=== PATIENT | male | born 1955 | race Caucasian/White ===

== ENCOUNTER 2018-01-08 06:38 | Day surgery (SDC) | payer OTHER ==
[2018-01-08] MEDS ORDERED: LIDOCAINE 1% 2 ML INJ ID PRN (06:53)
[2018-01-08] MEDS ORDERED: LR 1,000 ML IV ONE (06:53)
[2018-01-08] MEDS ORDERED: ceFAZolin 2 GM/DEXTROSE 100 ML IV ONE (07:40)
[2018-01-08 07:42] LABS: INR 1.16 (0.83-1.16)
--- NOTE | 2018-01-08 07:45 | PDANEPAE ---
ANE History of Present Illness 62 year old male w/ PMHx of Jaron (chronic), HTN, GERD & Obesity presents for robot assisted/laparoscopic inguinal hernia repair. ANE Past Medical History - Cardiovascular History Hx Hypertension: Yes Hx Arrhythmias: Yes Hx Chest Pain: No Hx Coronary Artery / Peripheral Vascular Disease: No Hx CHF / Valvular Disease: No Hx Palpitations: Yes Cardiovascular History Comment: CHRONIC AFIB AND CARDIOVERSION - Pulmonary History Hx COPD: No Hx Asthma/Reactive Airway Disease: No Hx Recent Upper Respiratory Infection: No Hx Oxygen in Use at Home: No Hx Sleep Apnea: Yes Sleep Apnea Screening Result - Last Documented: Positive - Neurologic History Hx Cerebrovascular Accident: No Hx Seizures: No Hx Dementia: No - Endocrine History Hx Diabetes: No Obesity: yes - Renal History Hx Renal Disorders: No - Liver History Hx Hepatic Disorders: No - Neurological & Psychiatric Hx Hx Neurological and Psychiatric Disorders: No - Cancer History Hx Cancer: No - Congenital Disorder History Hx Congenital Disorders: No - GI History Hx Gastrointestinal Disorders: Yes Gastrointestinal History Comment: GERD - Other Health History Other Health History: NA - Chronic Pain History Chronic Pain: No - Surgical History Prior Surgeries: CARDIOVERSION 2011 ANE Review of Systems Review of systems is: negative Review of Systems: - Exercise capacity Exercise capacity: >=4 METS METS (RN): 4 METS ANE Patient History - Allergies Allergies/Adverse Reactions: atenolol Allergy (Verified 01/07/18 12:11) - Home Medications Home medications: home medication list seen and reviewed Home Medications: Acetaminophen [Tylenol Extra Strength] 500 mg PO BID 07/29/12 [Last Taken ] Aspirin [Aspirin 81mg (OTC)] 07/29/12 [Last Taken 01/06/18] Lisinopril 40 mg PO 07/29/12 [Last Taken 01/07/18] Ranitidine HCl [Zantac 75] 150 mg PO 07/29/12 [Last Taken 01/07/18] Simvastatin 80 mg PO 07/29/12 [Last Taken 01/07/18] Spironolactone [Aldactone] 25 mg PO 07/29/12 [Last Taken 01/07/18] Warfarin Sodium [Coumadin 5MG (RX)] 5 mg PO DAILY16 07/29/12 [Last Taken ] - NPO status NPO Status: no food or drink >8 hours NPO Since - Liquids (Date): 01/07/18 NPO Since - Liquids (Time): 19:00 NPO Since - Solids (Date): 01/07/18 NPO Since - Solids (Time): 20:00 - Anes Hx Anes Hx: no prior problems - Smoking Hx Smoking Status: Never smoked Marijuana use: No - Alcohol Use Alcohol Use: Rarely - Family Anes Hx Family Anes Hx: neg - N/A Family Hx Anesthesia Complications: NA ANE Labs/Vital Signs - Labs Result Diagrams: 01/08/18 07:22 - Vital Signs Vital Signs: reviewed preoperatively; see RN documention for details Blood Pressure: 128/95 Heart Rate: 46 Respiratory Rate: 12 O2 Sat (%): 95 Height: 185.42 cm Weight: 122.47 kg ANE Physical Exam - Airway Neck exam: decreased ROM Mallampati Score: Class 4 Mouth exam: normal dental/mouth exam - Pulmonary Pulmonary: no respiratory distress - Cardiovascular Cardiovascular: irregularly irregular - ASA Status ASA Status: III ANE Anesthesia Plan Anesthesia Plan: general endotracheal anesthesia Total IV Anesthesia: No
--- NOTE | 2018-01-08 07:48 | PDGENHP ---
History and Physical - Chief Complaint hernia - History of Present Illness painful hernia, wants repair. Has had it a long time History Information - Allergies/Home Medication List Allergies/Adverse Reactions: atenolol Allergy (Verified 01/07/18 12:11) Home Medications: Acetaminophen [Tylenol Extra Strength] 500 mg PO BID 07/29/12 [Last Taken ] Aspirin [Aspirin 81mg (OTC)] 07/29/12 [Last Taken 01/06/18] Lisinopril 40 mg PO 07/29/12 [Last Taken 01/07/18] Ranitidine HCl [Zantac 75] 150 mg PO 07/29/12 [Last Taken 01/07/18] Simvastatin 80 mg PO 07/29/12 [Last Taken 01/07/18] Spironolactone [Aldactone] 25 mg PO 07/29/12 [Last Taken 01/07/18] Warfarin Sodium [Coumadin 5MG (RX)] 5 mg PO DAILY16 07/29/12 [Last Taken ] I have personally reviewed and updated: family history, medical history, social history, surgical history - Social History Smoking Status: Never smoked Alcohol Use: Rarely Review of Systems Review of Systems: ROS: 10pt was reviewed & negative except for what was stated in HPI & below Physical Exam Physical Exam: Temp Pulse Resp BP Pulse Ox 36.6 C 46 L 12 128/95 H 95 01/08/18 07:28 01/08/18 07:45 01/08/18 07:45 01/08/18 07:45 01/08/18 07:45 Constitutional: no apparent distress, appears nourished, not in pain Eyes: PERRL, anicteric sclera, EOMI Ears, Nose, Mouth, Throat: moist mucous membranes, hearing normal, ears appear normal, no oral mucosal ulcers Cardiovascular: regular rate and rhythym, no murmur, rub, or gallop, No edema Respiratory: no respiratory distress, no rales or rhonchi, clear to auscultation Gastrointestinal: normoactive bowel sounds, soft, non-tender abdomen, no palpable masses Genitourinary: no bladder fullness, no bladder tenderness Skin: warm, normal color, no rashes or abrasions, no fluctuance, no induration, No mottled Musculoskeletal: full muscle strength, no muscle tenderness, normal joint ROM, no joint effusions Psychiatric: interacting appropriately, not anxious, not encephalopathic, thought process linear Lymph, Heme, Immunologic: no cervical LAD, no supraclavicular LAD Lab Data & Imaging Review 01/08/18 07:22 PT 15.0 SEC (12.0-15.0) 01/08/18 07:22 INR 1.16 (0.83-1.16) 01/08/18 07:22 Assessment & Plan Plan: 62yo M c hernia, see full office note from 12/06 - to OR for repair
[2018-01-08] MEDS ORDERED: MIDAZOLAM 2 MG/2 ML VIAL IVP ONE (07:53)
[2018-01-08] MEDS ORDERED: BUPIVACAINE/EPI 0.5% 30 ML SDV ONE (07:55)
[2018-01-08] MEDS ORDERED: PROPOFOL/EMULSION 500 MG/50 ML BOTTLE IV ONE ×2 (08:01→09:04)
[2018-01-08] MEDS ORDERED: fentaNYL 100 MCG/2 ML INJ ONE ×2 (08:01→10:39)
[2018-01-08] MEDS ORDERED: ROCURONIUM 100 MG/10 ML VIAL ONE (08:02)
[2018-01-08] MEDS ORDERED: LIDOCAINE 2% 5 ML SDV ONE (08:02)
[2018-01-08] MEDS ORDERED: ceFAZolin 1 GM VIAL ONE (08:28)
[2018-01-08] MEDS ORDERED: DEXAMETHASONE 4 MG/ML VIAL ONE (08:31)
[2018-01-08] MEDS ORDERED: KETOROLAC 30 MG/1 ML SDV ONE (09:01)
[2018-01-08] MEDS ORDERED: PHENYLEPHRINE HCL 100 MCG/ML SYR IVP PRN (09:07)
[2018-01-08] MEDS ORDERED: LR 500 ML IV PRN (09:07)
[2018-01-08] MEDS ORDERED: ACETAMINOPHEN 500 MG TAB PO PRN (09:07)
[2018-01-08] MEDS ORDERED: NALOXONE HCL 0.4 MG/ML INJ IVP PRN (09:07)
[2018-01-08] MEDS ORDERED: ONDANSETRON 4 MG/2 ML VIAL IVP PRN (09:07)
[2018-01-08] MEDS ORDERED: oxyCODONE IR 5 MG TAB PO PRN (09:07)
[2018-01-08] MEDS ORDERED: ROCURONIUM 50 MG/5 ML VIAL ONE (09:22)
--- NOTE | 2018-01-08 10:13 | POSTOPPROG ---
Post Op Note Date of Operation: 01/08/18 Surgeon: Juan Prado Word Processor: JOHANNE Trinh Anesthesiologist: Prateek Anesthesia: GET(General Endotracheal) Pre-op Diagnosis: right inguinal hernia Post-op Diagnosis: right pantalloon inguinal hernia Procedure: robot assisted RIGHT inguinal hernia repair with mesh Findings: large direct, small indirect Inf/Abcess present in the surg proc area at time of surgery?: No EBL: Minimal
[2018-01-08] MEDS: fentaNYL 100 MCG/2 ML INJ IVP PRN ×2 (10:44→10:50)
[2018-01-08] MEDS ORDERED: ACETAMINOPHEN 500 MG TAB ONE (11:00)
--- NOTE | 2018-01-08 13:28 | POSTANESTH ---
Post Anesthetic Evaluation Cardiovascular Status: Normal, Stable, Similar to Pre-Op Cond Respiratory Status: Similar to Pre-op Cond. Level of Consciousness/Mental Status: Can Participate in Eval, Alert and Oriented Pain Control: Adequate, Prn Tx Ordered Nausea/Vomiting Control: Adequate, Prn Tx Ordered Complications Possibly Related to Anesthesia: None Noted
--- NOTE | 2018-01-08 16:07 | GOP ---
[f rep st] OPERATIVE REPORT DATE OF OPERATION: 01/08/2018 SURGEON: Juan Prado MD SR. OPERATIONS MANAGER: Janet Longoria, certified surgical heel sprayer first. ANESTHESIA: General endotracheal. ANESTHESIOLOGIST: Dr. Phong Chandra. PREOPERATIVE DIAGNOSIS: Right inguinal hernia. POSTOPERATIVE DIAGNOSIS: Right inguinal pantaloon hernia. PROCEDURE PERFORMED: Robotic assisted laparoscopic right inguinal hernia repair with mesh. FINDINGS: Large direct and smaller indirect pantaloon hernia noted on the right. Hernia successfull y reduced and repaired with Bard 3D Light large-size mesh. SPECIMENS: None. ESTIMATED BLOOD LOSS: 5 cc. DESCRIPTION OF PROCEDURE: The patient was greeted in the preoperative suite. Once again, risks, yanira efits, and alternatives were discussed. Consent was signed. He was then brought back to the operati ve suite, placed on the OR table in supine position. After all anesthesia machines, including SCDs w ere on and functioning, a [employer] time-out was performed ending with all in agreeme nt. After successful induction of general anesthesia, the patient's abdomen was prepped and draped i n typical sterile fashion. I entered the abdomen via a supraumbilical cutdown through, which a Veress needle was passed. I achi eved pneumoperitoneum to 15 mmHg, which was well tolerated by the patient. Through this, I inserted an 8 mm port. Once successfully in the patient's abdomen, I inserted 2 additional 8 mm ports, 1 in t he right upper, 1 in the left upper quadrant. I also placed a 5 mm trocar between these 2 working po rts as an nursing assistant port. The patient was then placed in gentle Trendelenburg position and the robot was successfully docked. I turned my attention toward the patient's right lower quadrant. I scored the peritoneum from just a ursula the anterior superior iliac spine, all the way medial to the pubic tubercle. I took the periton eum down from the preperitoneal space, both medially and laterally to the extent of the dissection. The hernia sac was quite large. With external pressure, I was able to successfully reduced the entir e sac intact from the hernia itself. Once reduced, I was able to successfully identify that the pito ent had 2 hernias, both a direct and an indirect with the direct being much larger. I preserved all cord structures and vasculature. I then measured the defect, which measured approximately 5 cm. I t brenda brought in a Bard 3D Light large-size mesh. It was attached to Say ligament, as well as aroun d the defect multiple various spots, as well as either side of the inferior epigastric vessels. The peritoneal was then closed over the top of this with a running V-Loc suture. The sac was incorporate d into this closure, but was highly redundant. I turned my attention toward the patient's left groin. I identified no left inguinal hernia. On the right side, it should be noted that I identified no femoral or obturator hernias on that side as wel l. Pneumoperitoneum was then evacuated. I then closed my ports with running 4-0 Monocryl over which Dermabond was placed. The patient was then woken in the operative suite and taken to the PACU in sa tisfactory condition. DRAINS: None. /[id number]/MODL
[2018-01-08 16:58] VITALS: BP 116/71
== END 2018-01-08 14:04 | disposition home or self-care (01) ==
LOC: FSGY 06:38
PROVIDERS: ATTEND Surgery
PROC: 8E0W4CZ Robotic Assisted Procedure of Trunk Region, Percutaneous Endoscopic Approach (ICD-10-PCS; principal; 2018-01-08 08:15)
PROC: 0YU54JZ Supplement Right Inguinal Region with Synthetic Substitute, Percutaneous Endoscopic Approach (ICD-10-PCS; principal; 2018-01-08 08:15)
DX: K40.90 Unilateral inguinal hernia, without obstruction or gangrene, not specified as recurrent (principal); K21.9 Gastro-esophageal reflux disease without esophagitis; I48.91 Unspecified atrial fibrillation; I10 Essential (primary) hypertension; E66.9 Obesity, unspecified
CPT/HCPCS: C1781; J0690; J1100; J1885; J2250; J2704; J3010